=== PATIENT | female | born 1940 | race Caucasian/White ===

== ENCOUNTER 2017-04-03 10:52 | Inpatient (IN) | payer MEDICARE, OTHER ==
[2017-04-03] MEDS ORDERED: VANCOMYCIN 1 GM (PMX) 250 ML IVPB (11:00)
[2017-04-03] MEDS: ACETAMINOPHEN 650 MG SUPP PR (11:38)
[2017-04-03] MEDS: SODIUM CHLORIDE 0.9% 1L BAG IV* (11:38)
[2017-04-03 11:39] LABS: Allen Test ACCEPTAB; Arterial Blood Gas Oxygen Sat 99.4 mmHG (95.0-100.0); Arterial COHb 0.3 % (0.0-3.0); Arterial Fraction of Oxyhgb 98.8 % (93.0-99.0); Arterial HCO3 29.2 mmol/L (22.0-26.0); Arterial MetHb 0.3 % (0.0-1.5); Arterial Total Hemglobin 9.5 g/dl (12.0-18.0); Arterial pCO2 47.2 mmhg (35-45); Blood Gas IEPAP 15/5; Blood Gas PS 10; MODE MASK - BIPAP; Site Right Radial
[2017-04-03 11:40] LABS: ABNORMAL IP MESSAGE 1; HEMATOCRIT 28.5 % (37.0-47.0); HEMOGLOBIN 8.6 g/dl (12.0-16.0); MEAN CORPUSCULAR HEMOGLOBIN 26.8 pg (29.0-33.0); MEAN CORPUSCULAR HGB CONC 30.2 g/dl (32.0-37.0); MEAN CORPUSCULAR VOLUME 88.8 fl (82.0-101.0); NUCLEATED RED BLOOD CELLS% 0.4 /100WBC (0.0-0.0); RED BLOOD COUNT 3.21 10^6/ul (4.20-5.40); RED CELL DISTRIBUTION WIDTH 16.8 % (11.5-14.5)
[2017-04-03 11:40] LABS: WHITE BLOOD COUNT 19.6 10^3/ul (4.8-10.8)
[2017-04-03 11:48] LABS: ADD MAN DIFF? YES; PLATELET COUNT 38 10^3/UL (140-415); POSITIVE DIFF @See below
[2017-04-03 11:58] LABS: INR 1.17; PROTIME 15.1 Sec (11.9-14.9); PT RATIO 1.2
[2017-04-03] MEDS ORDERED: ACETAMINOPHEN 325 MG TAB PO (12:00)
[2017-04-03] MEDS ORDERED: ONDANSETRON 4 MG INJ IV (12:00)
[2017-04-03] MEDS: AZTREONAM 1 GM/NS (PMX) 50 ML IVPB (12:00)
[2017-04-03 12:08] LABS: ALANINE AMINOTRANSFERASE 63 IU/L (13-69); ALBUMIN 2.4 g/dl (3.3-4.9); ALBUMIN/GLOBULIN RATIO 0.85; ALKALINE PHOSPHATASE 155 IU/L (42-121); ANION GAP 11 (8-16); ASPARTATE AMINO TRANSFERASE 39 IU/L (15-46); BLOOD UREA NITROGEN 42 mg/dl (7-20); CALCIUM 8.9 mg/dl (8.4-10.2); CARBON DIOXIDE 31 mmol/L (21-31); CHLORIDE 103 mmol/L (97-110); CREATININE 1.01 mg/dl (0.44-1.00); POTASSIUM 4.4 mmol/L (3.5-5.1); SODIUM 141 mmol/L (135-144); TOTAL PROTEIN 5.2 g/dl (6.1-8.1)
[2017-04-03 12:11] LABS: GLUCOSE 431 mg/dl (70-220)
[2017-04-03 12:18] LABS: ADD UMIC YES; UR ASCORBIC ACID NEGATIVE (NEGATIVE); UR BACTERIA FEW /HPF (NONE SEEN); UR BILIRUBIN (Dip) NEGATIVE (NEGATIVE); UR BLOOD (Dip) 2+ mg/dL (NEGATIVE); UR BUDDING YEAST MANY /HPF (NONE SEEN); UR CLARITY TURBID (CLEAR); UR COLOR AMBER (YELLOW); UR GLUCOSE (Dip) 3+ mg/dL (NEGATIVE); UR KETONES (Dip) NEGATIVE (NEGATIVE); UR LEUKOCYTE ESTERASE (Dip) 2+ Leu/ul (NEGATIVE); UR NITRITE (Dip) NEGATIVE (NEGATIVE); UR RBC > 182 /HPF (0-5); UR SPECIFIC GRAVITY (Dip) 1.016 (1.003-1.030); UR TOTAL PROTEIN (Dip) 2+ mg/dl (NEGATIVE); UR UROBILINOGEN (Dip) NEGATIVE (NEGATIVE); UR WBC 0 /HPF (0-5)
[2017-04-03 12:30] LABS: LACTIC ACID 2.6 mmol/L (0.5-2.0)
[2017-04-03 12:40] LABS: TROPONIN-I 0.466 ng/ml (0.00-0.12)
[2017-04-03] MEDS: ASPIRIN 81 MG TAB PO (13:30)
[2017-04-03] MEDS: morphine (DRIP) 100 MG/100 ML 100 ML IV ×3 (13:47→17:50)
[2017-04-03 13:49] LABS: ANISOCYTOSIS 1+ (0-0); BAND NEUTROPHILS % (M) 26 % (0-4); GIANT THROMBO% (M) 11 % (0-0); LYMPHOCYTES #M 0.1 10^3/ul (0.8-2.9); LYMPHOCYTES % (M) 1 % (15-51); METAMYELOCYTES #M 0.7 10^3/ul (0.0-0.0); METAMYELOCYTES %M 4 % (0-0); MONOCYTE #M 0.3 10^3/ul (0.3-0.9); MONOCYTES % (M) 2 % (0-11); MYELOCYTES #M 0.1 10^3/ul (0.0-0.0); MYELOCYTES % (M) 1 % (0-0); PLATELET ESTIMATE DECREASED; POIKILOCYTOSIS 1+ (0-0); POLYCHROMASIA 1+ (0-0); PROMYELOCYTES #M 0.1 10^3/ul (0-0); PROMYELOCYTES % (M) 1 % (0-0); SEG NEUT #M 13.5 10^3/ul (1.7-7.5); SEGMENTED NEUTROPHILS (M) % 64 % (39-77); SMUDGE%M 2 % (0-0); TEAR DROP CELLS 1+ (0-0)
[2017-04-03] MEDS: LORAZEPAM 2 MG INJ IV (17:51)
[2017-04-03] MEDS: ATROPINE 1% 5 ML OPH SL (18:04)
[2017-04-03] MEDS ORDERED: INFLUENZA VIRUS VACCINE 0.5 ML (DISPENSING) IM* (19:00)
[2017-04-04] MEDS: ATROPINE 1% 5 ML OPH SL ×2 (01:02→04:16)
== END 2017-04-04 05:18 | disposition expired | DRG 871 ==
LOC: E/R 10:52 → PP2 12:00
DX: A41.9 Sepsis, unspecified organism (principal); J18.9 Pneumonia, unspecified organism; I21.A1 Myocardial infarction type 2; J96.00 Acute respiratory failure, unspecified whether with hypoxia or hypercapnia; J44.9 Chronic obstructive pulmonary disease, unspecified; D69.6 Thrombocytopenia, unspecified; E11.65 Type 2 diabetes mellitus with hyperglycemia; B37.49 Other urogenital candidiasis; R65.20 Severe sepsis without septic shock; D50.9 Iron deficiency anemia, unspecified; E78.5 Hyperlipidemia, unspecified; M81.0 Age-related osteoporosis without current pathological fracture; F32.9 Major depressive disorder, single episode, unspecified; Z79.4 Long term (current) use of insulin; Z87.891 Personal history of nicotine dependence
CPT/HCPCS: 36415; 36600; 71045; 80053; 81001; 82803; 83605; 84484; 85025; 85610; 85730; 87040; 87086; 90686; 93005; 94660; 96374; 96375; 99291-25